=== PATIENT | female | born 1980 | race Caucasian/White ===

== ENCOUNTER 2016-10-19 13:03 | Outpatient (CLI) | payer OTHER ==
[~2016-10-19] VITALS: Ht 162.6 cm; Wt 78.2 kg
[2016-10-19] MEDS ORDERED: THIAMINE 1100 MG/TAB PO (13:14)
[2016-10-19] MEDS ORDERED: PRENATAL MVI PO (13:16)
[2016-10-19] MEDS ORDERED: VITAMINC1000TA PO (13:27)
[2016-10-19] MEDS ORDERED: THE MEDICINE S200 M2 PO (13:28)
[2016-10-19] MEDS ORDERED: ZYRTEC 10MG10 MG PO (13:29)
[2016-10-19] MEDS ORDERED: VITAMIND3 5000 PO (13:29)
[2016-10-19] MEDS ORDERED: NATURE'S BLE1000 MCG PO (13:30)
[2016-10-19 13:40] VITALS: BP 120/80; PULSE 77; TEMP 98.4
[2016-10-19 13:51] LABS: HEMATOCRIT 40.7 % (37.0-47.0); HEMOGLOBIN 14.1 g/dl (12.5-16.0); MEAN CELL VOLUME 87 fl (80.0-100.0); MEAN CORPUSCULAR HEMOGLOBIN 30 pg (27.0-31.0); MEAN CORPUSCULAR HGB CONC 35 g/dl (33.0-37.0); MEAN PLATELET VOLUME 10.2 fl (7.4-10.4); PLATELET COUNT 329 K/mm3 (130-400); RED BLOOD COUNT 4.68 M/mm3 (4.10-5.30); REDCELL DISTRIBUTION WIDTH-CV 13.2 % (11.5-14.5); WHITE BLOOD COUNT 8.6 K/mm3 (4.8-10.8)
[2016-10-19 16:10] VITALS: BP 126/79; PULSE 66; TEMP 98
== END 2016-10-19 16:37 | disposition home or self-care (01) ==
LOC: COL.CAR 13:03
PROVIDERS: Internal Medicine Interventional Cardiology
DX: I47.1 Supraventricular tachycardia (principal); Z83.3 Family history of diabetes mellitus; Z82.49 Family history of ischemic heart disease and other diseases of the circulatory system; Z80.0 Family history of malignant neoplasm of digestive organs
CPT/HCPCS: C1764